=== PATIENT | male | born 1955 | race Asian ===

== ENCOUNTER 2022-04-04 10:44 | Emergency (ER) | payer BC ==
[~2022-04-04] VITALS: Ht 165.1 cm; Wt 70.3 kg
[2022-04-04 11:06] VITALS: BP 148/77
--- NOTE | 2022-04-04 11:10 | NUR ---
Patient ambulated with caregiver to bed 3.
--- NOTE | 2022-04-04 11:50 | NUR ---
dR JOLLY AT BEDSIDE
[2022-04-04] MEDS ORDERED: KETOROLAC 60 MG/2 ML VIAL IM ONE (12:15)
--- NOTE | 2022-04-04 12:30 | NUR ---
PT MEDICATED PER ORDERS
[2022-04-04] MEDS ORDERED: ACET-8386 PO (13:25)
[2022-04-04] MEDS ORDERED: NAPR-1704 PO (13:25)
--- NOTE | 2022-04-04 13:31 | NUR ---
PT RESTING QUIETLY, RESP EASY, MM PINK, NO APPARENT DISTRESS
[2022-04-04 13:39] VITALS: BP 136/70
--- NOTE | 2022-04-04 13:40 | NUR ---
Patient discharged with v/s stable. Written and verbal after care instructions given and explained, PT CALL SON TO HELP INTERPRET. Patient verbalized understanding. Ambulatory with steady gait. All questions addressed prior to discharge. Advised to follow up with PMD.
== END 2022-04-04 13:40 | disposition home or self-care (01) ==
LOC: MED 10:44
DX: S22.42XA Multiple fractures of ribs, left side, initial encounter for closed fracture (principal); I10 Essential (primary) hypertension; Z79.899 Other long term (current) drug therapy; W18.30XA Fall on same level, unspecified, initial encounter; Y93.89 Activity, other specified; Y92.89 Other specified places as the place of occurrence of the external cause; Y99.8 Other external cause status
CPT/HCPCS: 71045; 71100; 96372; 99284; J1885